=== PATIENT | male | born 1955 | race African-American/Black ===

== ENCOUNTER 2020-02-11 08:31 | Day surgery (SDC) | payer OTHER, SELFPAY ==
[~2020-02-11] VITALS: Ht 188 cm; Wt 75.7 kg
[2020-02-11] MEDS ORDERED: LIDOCAINE 2% 100 MG/5 ML UJET TP ONE (11:03)
[2020-02-11] MEDS ORDERED: fentaNYL citrate 0.05 MG/ML VIAL ONE (11:03)
[2020-02-11] MEDS ORDERED: MIDAZOLAM 5 MG/5 ML VIAL ONE (11:03)
[2020-02-11] MEDS ORDERED: diphenhydrAMINE 50 MG/ML VIAL ONE (11:36)
[2020-02-11] MEDS ORDERED: MIDAZOLAM 2 MG/2 ML VIAL IVP ONE (12:15)
[2020-02-11] MEDS ORDERED: diphenhydrAMINE 50 MG/ML VIAL IVP ONE (12:15)
[2020-02-11] MEDS ORDERED: fentaNYL citrate 0.05 MG/ML VIAL IVP ONE (12:15)
== END 2020-02-11 12:20 | disposition home or self-care (01) ==
LOC: MFCC 08:31 → MDS 08:31
PROVIDERS: ATTEND Internal Medicine Gastroenterology
DX: Z12.11 Encounter for screening for malignant neoplasm of colon (principal); Z20.828 Contact with and (suspected) exposure to other viral communicable diseases; Z79.899 Other long term (current) drug therapy; Z98.890 Other specified postprocedural states
CPT/HCPCS: 45378; J1200; J2250; J3010; U0003